=== PATIENT | female | born 1975 | race Caucasian/White ===

== ENCOUNTER 2016-11-19 11:17 | Emergency (ER) | payer BC ==
--- NOTE | 2016-11-19 12:52 | ED CLINICAL REPORT ---
Clinical Report - Physicians/Mid Levels [facility] [address] [place] [address] 11/19/2016 11:26 [id number] Time Seen: 11:45. Arrived- By private vehicle. Historian- patient. HISTORY OF PRESENT ILLNESS Chief Complaint: LOWER EXTREMITY PAIN. This started about 2 months ago and is still present. Severity is described as being moderate. The quality is noted to be sharp and "pain". Flexion and not relieved by anything- worsened by flexion and not relieved by anything. Symptoms located in the area of the left thigh. The patient has not had redness. No swelling, bladder dysfunction, bowel dysfunction, sensory loss or motor loss. She has had difficulty walking (today). Patient notes the possibility of an injury. Mechanism of injury- (patient states that she did not have an injury to initiate the knee pain 2 months ago; however, today while walking on the stairs, she felt a sudden, sharp pain in her posterior leg just superior to her posterior knee. The patient states that she did not feel a pop or a snap, but that every time she tries to flex her knee, she feels the same sharp pain. Patient was seen at [facility] not long after her pain initially began 2 months ago, and an x-ray was done, which was negative. Patient has seen her primary care physician and spoken about an MRI, but one has not been ordered, because the pain was not as bad then as it is today. Patient denies any other complaints She has no history of DVT She states that when the pain first began it was sudden onset. No chest pain or shortness of breath.). Similar symptoms previously: Recent medical care: Not recently seen/assessed. REVIEW OF SYSTEMS No cough, chest pain, difficulty breathing, fever or skin rash. No enlarged lymph nodes, neck pain, back pain, headache or blurred vision. No sore throat, abdominal pain, vomiting, diarrhea or black stools. No difficulty with urination or bloody stools. All systems otherwise negative, except as recorded above. PAST HISTORY Problems: Tendonosis of left hip. Muscle Spasm. Hypertension. Additional Surgeries: Lap band. Medications: [place] Oral (Tablet 10-325 mg), daily. Flexeril 10 mg, daily. AmLODIPine Besylate Oral 5 mg, daily. Allergies: BP MED . (x2) Oxycodone. Penicillins. SOCIAL HISTORY Smoker- current status unknown. No alcohol use or drug use. ADDITIONAL NOTES The nursing notes have been reviewed. PHYSICAL EXAM Vital Signs: 11/19/2016 11:21 BP: 177/86. HR: 114. RR: 18. O2 saturation: 98%. Temp: 97.6 F. Pain level now: 02/07. Have been reviewed. Appearance: Alert. Oriented X3. (Patient is anxious and tearful.). Eyes: Pupils equal, round and reactive to light. Eyes normal inspection. ENT: Nose normal. Neck: Normal inspection. CVS: Pulses normal. Strong peripheral pulses. Respiratory: No respiratory distress. Back: ROM normal. Skin: Skin intact. Skin warm and dry. Normal skin color. Normal skin turgor. Extremities: Left thigh: moderate tenderness located in the posterior aspect of lower thigh. Neurovascular intact distally. No erythema, swelling, laceration, abrasion or ecchymosis. No puncture wound, foreign body or deformity. No signs of infection involving the lower extremities. Extremities otherwise negative. Neuro: Oriented X 3. No motor deficit. No sensory deficit. LABS, X-RAYS, AND EKG Pulse Oximetry: 11/19/2016 11:21 O2 saturation: 98%. (FIO2 - room air). Interpretation: normal. PROGRESS AND PROCEDURES Course of Care: I discussed with the patient that her symptoms were not consistent with a DVT, considering the sudden onset of pain. She has not had an injury that would be expected to result in any bony trauma, and her symptoms are all in the soft tissue of the hamstring area. We have discussed the MRI is more helpful for soft tissue type injuries, if any imaging needs to be done all, and patient states she will think about it. Patient has accepted crutches at this point in time but declined any analgesia in the emergency department. Patient counseled in person regarding the patient's stable condition, diagnosis and need for follow-up. Concerns were addressed. Old medical records reviewed. Disposition: Discharged. Condition: stable. CLINICAL IMPRESSION Muscle strain of the left hamstrings. INSTRUCTIONS Elevate affected areas above chest level as needed and until better. (Please follow-up with your primary doctor to discuss getting an MRI.). Warnings: Further evaluation is necessary. GENERAL WARNINGS: Return or contact your physician immediately if your condition worsens or changes unexpectedly, if not improving as expected, or if other problems arise. Your Current Medications: CONTINUE TAKING THE FOLLOWING MEDICATIONS: AmLODIPine Besylate Oral : 5 mg daily. Flexeril* : 10 mg daily. [place] Oral : Tablet 10-325 mg, daily. Follow-up: Follow up with your doctor. Call for the next available appointment. Reason for referral: Ongoing L leg/knee pain, discuss possible need for MRI. Understanding of the discharge instructions verbalized by patient. (Electronically signed by Jahaira Bai MD 11/26/2016 9:54)
--- NOTE | 2016-11-19 12:52 | ED NURSING NOTES ---
Clinical Report - Nurses [facility] [address] [place] [address] 11/19/2016 11:26 [id number] TRI[facility] Triage time 11:21. Acuity: LEVEL 3. Chief Complaint: LEFT LOWER EXTREMITY PAIN. Alert. No acute distress. RYAN COMA SCORE: [place] Coma Scale: 15- eyes open spontaneously (4); best verbal response- oriented x 4 (5); best motor response- obeys commands (6). --11:30 Milly Prescott R.N. 11:21 11/19/16. BP: 177/86. HR: 114. RR: 18. O2 saturation: 98% on room air. Temp: 97.6 F (oral). Pain level now: 02/07. --11:30 Milly Prescott R.N. Weight: 129.7 kg stated. Height/Length: 65 inches Per Patient. BMI: 47.6. --11:26 Milly Prescott R.N. Medications AmLODIPine Besylate Oral 5 mg, daily. --11:28 Milly Prescott R.N. Flexeril 10 mg, daily. --11:29 Milly Prescott R.N. [place] Oral (Tablet 10-325 mg), daily. --11:29 Milly Prescott R.N. Medication/allergy information source: the patient. --11:30 Milly Prescott R.N. Allergies BP MED . (x2) --11:30 Milly Prescott R.N. Oxycodone. Penicillins. --11:30 Milly Prescott R.N. History Arrived by private vehicle. Historian: patient. Unaccompanied. Primary physician (Eleazar). No injury occurred. This occurred (about 2 months). ( worse today and behind the knee). PAST MEDICAL HX: Last normal menstrual period now. SOCIAL HX: Heavy tobacco smoker- 1 pack per day. No alcohol use or drug use. FALL RISK ASSESSMENT: Fall risk assessment completed. No fall risk identified. FUNCTIONAL ASSESSMENT: Functional assessment: no impairments noted. LEARNING NEEDS ASSESSMENT: The learning needs assessment revealed no barriers. --11:30 Milly Prescott R.N. PROBLEMS: Muscle Spasm. Hypertension. --11:25 Milly Prescott R.N. Tendonosis of left hip. --11:26 Milly Prescott R.N. ADDITIONAL SURGERIES: Lap band. --11:25 Milly Prescott R.N. Assessment GENERAL / NEURO / PSYCH: Alert. Appears in no acute distress. RESPIRATORY: Respirations not labored. SKIN: Skin is warm and dry. --11:30 Milly Prescott R.N. Interventions ID and allergy band on patient. To treatment room. --11:30 Milly Prescott R.N. PHYSICAL ASSESSMENT 11:42 11/19/16. Ambulatory to room. Patient gowned. GENERAL / NEURO / PSYCH: Oriented X 4. Alert. Appears in pain. SKIN: Skin is warm and dry. ( pain with wt bearing). --11:42 Milly Prescott R.N. NURSING PROGRESS NOTES 11:42 11/19/16. Patient gowned. Call light placed in reach. Side rails up x 1. Bed placed in lowest position. Brakes of bed on. --11:42 Milly Prescott R.N. Patient fit with new crutches. Crutch training performed by [employer]; the patient demonstrated proper use. --13:15 Klaudia Alarcon. DISPOSITION / DISCHARGE No learning barriers present. Discharge instructions provided and reviewed with the patient. Patient verbalized understanding. Written instructions provided in Bengali. The patient was discharged by the physician. She was discharged home and accompanied by spouse. She left the Emergency Department on crutches and via private vehicle. Spouse driving. ( pt dc home, ambulatory with crutches, pt returned demonstrated use of crutches, given f/u per MD). --13:20 Jose E Augustine R.N. 13:16 11/19/16. BP: 154/64. HR: 97. RR: 17. O2 saturation: 98%. Temp: deferred. Pain level now: 02/07. --13:20 Jose E Augustine R.N. Locked/Released at 11/24/2016 9:59 by Jose E Augustine R.N.
--- NOTE | 2016-11-19 12:52 | ED NURSING NOTES ---
Clinical Report - Nurses [facility] [address] [place] [address] 11/19/2016 11:26 [id number] TRI[facility] Triage time 11:21. Acuity: LEVEL 3. Chief Complaint: LEFT LOWER EXTREMITY PAIN. Alert. No acute distress. RYAN COMA SCORE: [place] Coma Scale: 15- eyes open spontaneously (4); best verbal response- oriented x 4 (5); best motor response- obeys commands (6). --11:30 Milly Prescott R.N. 11:21 11/19/16. BP: 177/86. HR: 114. RR: 18. O2 saturation: 98% on room air. Temp: 97.6 F (oral). Pain level now: 02/07. --11:30 Milly Prescott R.N. Weight: 129.7 kg stated. Height/Length: 65 inches Per Patient. BMI: 47.6. --11:26 Milly Prescott R.N. Medications AmLODIPine Besylate Oral 5 mg, daily. --11:28 Milly Prescott R.N. Flexeril 10 mg, daily. --11:29 Milly Prescott R.N. [place] Oral (Tablet 10-325 mg), daily. --11:29 Milly Prescott R.N. Medication/allergy information source: the patient. --11:30 Milly Prescott R.N. Allergies BP MED . (x2) --11:30 Milly Prescott R.N. Oxycodone. Penicillins. --11:30 Milly Prescott R.N. History Arrived by private vehicle. Historian: patient. Unaccompanied. Primary physician (Eleazar). No injury occurred. This occurred (about 2 months). ( worse today and behind the knee). PAST MEDICAL HX: Last normal menstrual period now. SOCIAL HX: Heavy tobacco smoker- 1 pack per day. No alcohol use or drug use. FALL RISK ASSESSMENT: Fall risk assessment completed. No fall risk identified. FUNCTIONAL ASSESSMENT: Functional assessment: no impairments noted. LEARNING NEEDS ASSESSMENT: The learning needs assessment revealed no barriers. --11:30 Milly Prescott R.N. PROBLEMS: Muscle Spasm. Hypertension. --11:25 Milly Prescott R.N. Tendonosis of left hip. --11:26 Milly Prescott R.N. ADDITIONAL SURGERIES: Lap band. --11:25 Milly Prescott R.N. Assessment GENERAL / NEURO / PSYCH: Alert. Appears in no acute distress. RESPIRATORY: Respirations not labored. SKIN: Skin is warm and dry. --11:30 Milly Prescott R.N. Interventions ID and allergy band on patient. To treatment room. --11:30 Milly Prescott R.N. PHYSICAL ASSESSMENT 11:42 11/19/16. Ambulatory to room. Patient gowned. GENERAL / NEURO / PSYCH: Oriented X 4. Alert. Appears in pain. SKIN: Skin is warm and dry. ( pain with wt bearing). --11:42 Milly Prescott R.N. NURSING PROGRESS NOTES 11:42 11/19/16. Patient gowned. Call light placed in reach. Side rails up x 1. Bed placed in lowest position. Brakes of bed on. --11:42 Milly Prescott R.N. Patient fit with new crutches. Crutch training performed by [employer]; the patient demonstrated proper use. --13:15 Klaudia Alarcon. DISPOSITION / DISCHARGE No learning barriers present. Discharge instructions provided and reviewed with the patient. Patient verbalized understanding. Written instructions provided in Italian. The patient was discharged by the physician. She was discharged home and accompanied by spouse. She left the Emergency Department on crutches and via private vehicle. Spouse driving. ( pt dc home, ambulatory with crutches, pt returned demonstrated use of crutches, given f/u per MD). --13:20 Jose E Augustine R.N. 13:16 11/19/16. BP: 154/64. HR: 97. RR: 17. O2 saturation: 98%. Temp: deferred. Pain level now: 02/07. --13:20 Jose E Augustine R.N. Locked/Released at 11/24/2016 9:59 by Jose E Augustine R.N.
--- NOTE | 2016-11-26 09:55 | ED MED RECONCILIATION SUMMARY ---
Patient: MELLO PERALTA Medication Reconciliation Report [facility] VisitID: [id number] [address] [place] [address] 41y, F Registration Date/Time: 11/19/2016 Weight: 129.7 kg Height/Length: 65 in. BMI: 47.6 ALLERGIES: BP MED , Oxycodone, Penicillins The patient's Home Medications are listed below: CONTINUE TAKING THE FOLLOWING MEDICATIONS: AmLODIPine Besylate Oral 5 mg, daily Flexeril 10 mg, daily [place] Oral (10-325 mg), daily The source(s) of the original Home Medication information: patient The following Medications were given to the patient in the Emergency Department: None. The following Medications were prescribed to the patient: None.
--- NOTE | 2016-11-26 09:55 | ED MAR SUMMARY ---
..... Medication Administration Record [facility] [address], [place] [id number] Patient: MELLO PERALTA Visit ID: [id number] 41y, F Weight: 129.7 kg Height/Length: 65 in BMI: 47.6 ALLERGIES: Oxycodone, Penicillins, BP MED
--- NOTE | 2016-11-26 09:55 | ED DISCHARGE INSTRUCTIONS ---
Patient: MELLO PERALTA General Instructions [facility] VisitID: [id number] [place] [address] 41y, F Registration Date/Time: 11/19/2016 Muscle strain of the left hamstrings. INSTRUCTIONS Elevate affected areas above chest level as needed and until better. (Please follow-up with your primary doctor to discuss getting an MRI.). Warnings: Further evaluation is necessary. GENERAL WARNINGS: Return or contact your physician immediately if your condition worsens or changes unexpectedly, if not improving as expected, or if other problems arise. Your Current Medications: CONTINUE TAKING THE FOLLOWING MEDICATIONS: AmLODIPine Besylate Oral : 5 mg daily. Flexeril* : 10 mg daily. [place] Oral : Tablet 10-325 mg, daily. Follow-up: Follow up with your doctor. Call for the next available appointment. Reason for referral: Ongoing L leg/knee pain, discuss possible need for MRI. Understanding of the discharge instructions verbalized by patient. ADDITIONAL INFORMATION Muscle Strain,Extremity A MUSCLE STRAIN is a stretching and tearing of muscle fibers. This causes pain, especially with motion of that muscle. There may also be some swelling and bruising. Home Care: 1) Keep the injured area raised to reduce pain and swelling. This is especially important during the first 48 hours. 2) Make an ice pack (ice cubes in a plastic bag, wrapped in a towel) and apply for 20 minutes every 1-2 hours the first day. You should continue with ice packs 3-4 times a day for the second and third days. Unless otherwise instructed, on the fourth day you may begin hot soaks or hot packs (small towel soaked in hot water) 3-4 times a day while you gently exercise the involved area. 3) You may use acetaminophen (Tylenol) or ibuprofen (Motrin, Advil) to control pain, unless another medicine was prescribed. [ NOTE : If you have chronic liver or kidney disease or ever had a stomach ulcer or GI bleeding, talk with your doctor before using these medicines.] 4) For LEG STRAINS: If CRUTCHES have been recommended, do not bear full weight on the injured leg until you can do so without pain. You may return to sports when you are able to hop and run on the injured leg without pain. Follow Up with your doctor or this facility if you are not improving within the next five days. Get Prompt Medical Attention if any of the following occur: -- Fingers or toes become swollen, cold, blue, numb or tingly -- Pain or swelling increases You have been given the following additional information: Muscle Strain, Extremity (Electronically signed by Jahaira Bai MD 11/26/2016 9:54)
--- NOTE | 2016-11-26 09:55 | ED MAR SUMMARY ---
..... Medication Administration Record [facility] [address], [place] [id number] Patient: MELLO PERALTA Visit ID: [id number] 41y, F Weight: 129.7 kg Height/Length: 65 in BMI: 47.6 ALLERGIES: Oxycodone, Penicillins, BP MED
--- NOTE | 2016-11-26 09:55 | ED ORDER SUMMARY ---
..... Patient: MELLO PERALTA OrderSheet [facility] VisitID: [id number] [address] [place] [address] 41y, F Registration Date/Time: 11/19/2016 ORDER SHEET Weight: 129.7 kg (stated) Allergies: BP MED , Oxycodone, Penicillins GENERAL ORDERS: Crutches (13:14 11/19/2016 Deya MEZA) (13:14 Wei Duff) MEDICATION ORDERS: IV FLUIDS: ORDER SHEET NOTES: [Electronically signed by Jose E Augustine R.N. (09:59 11/24/2016)] [Electronically signed by Jahaira Bai MD (09:54 11/26/2016)] [Electronically locked/signed by Jose E Augustine R.N. (09:59 11/24/2016)]
--- NOTE | 2016-11-26 09:55 | ED MED RECONCILIATION SUMMARY ---
Patient: MELLO PERALTA Medication Reconciliation Report [facility] VisitID: [id number] [address] [place] [address] 41y, F Registration Date/Time: 11/19/2016 Weight: 129.7 kg Height/Length: 65 in. BMI: 47.6 ALLERGIES: BP MED , Oxycodone, Penicillins The patient's Home Medications are listed below: CONTINUE TAKING THE FOLLOWING MEDICATIONS: AmLODIPine Besylate Oral 5 mg, daily Flexeril 10 mg, daily [place] Oral (10-325 mg), daily The source(s) of the original Home Medication information: patient The following Medications were given to the patient in the Emergency Department: None. The following Medications were prescribed to the patient: None.
--- NOTE | 2016-11-26 09:55 | ED DISCHARGE INSTRUCTIONS ---
Patient: MELLO PERALTA General Instructions [facility] VisitID: [id number] [place] [address] 41y, F Registration Date/Time: 11/19/2016 Muscle strain of the left hamstrings. INSTRUCTIONS Elevate affected areas above chest level as needed and until better. (Please follow-up with your primary doctor to discuss getting an MRI.). Warnings: Further evaluation is necessary. GENERAL WARNINGS: Return or contact your physician immediately if your condition worsens or changes unexpectedly, if not improving as expected, or if other problems arise. Your Current Medications: CONTINUE TAKING THE FOLLOWING MEDICATIONS: AmLODIPine Besylate Oral : 5 mg daily. Flexeril* : 10 mg daily. [place] Oral : Tablet 10-325 mg, daily. Follow-up: Follow up with your doctor. Call for the next available appointment. Reason for referral: Ongoing L leg/knee pain, discuss possible need for MRI. Understanding of the discharge instructions verbalized by patient. ADDITIONAL INFORMATION Muscle Strain,Extremity A MUSCLE STRAIN is a stretching and tearing of muscle fibers. This causes pain, especially with motion of that muscle. There may also be some swelling and bruising. Home Care: 1) Keep the injured area raised to reduce pain and swelling. This is especially important during the first 48 hours. 2) Make an ice pack (ice cubes in a plastic bag, wrapped in a towel) and apply for 20 minutes every 1-2 hours the first day. You should continue with ice packs 3-4 times a day for the second and third days. Unless otherwise instructed, on the fourth day you may begin hot soaks or hot packs (small towel soaked in hot water) 3-4 times a day while you gently exercise the involved area. 3) You may use acetaminophen (Tylenol) or ibuprofen (Motrin, Advil) to control pain, unless another medicine was prescribed. [ NOTE : If you have chronic liver or kidney disease or ever had a stomach ulcer or GI bleeding, talk with your doctor before using these medicines.] 4) For LEG STRAINS: If CRUTCHES have been recommended, do not bear full weight on the injured leg until you can do so without pain. You may return to sports when you are able to hop and run on the injured leg without pain. Follow Up with your doctor or this facility if you are not improving within the next five days. Get Prompt Medical Attention if any of the following occur: -- Fingers or toes become swollen, cold, blue, numb or tingly -- Pain or swelling increases You have been given the following additional information: Muscle Strain, Extremity (Electronically signed by Jahaira Bai MD 11/26/2016 9:54)
--- NOTE | 2016-11-26 09:55 | ED ORDER SUMMARY ---
..... Patient: MELLO PERALTA OrderSheet [facility] VisitID: [id number] [address] [place] [address] 41y, F Registration Date/Time: 11/19/2016 ORDER SHEET Weight: 129.7 kg (stated) Allergies: BP MED , Oxycodone, Penicillins GENERAL ORDERS: Crutches (13:14 11/19/2016 Deya MEZA) (13:14 Wei Duff) MEDICATION ORDERS: IV FLUIDS: ORDER SHEET NOTES: [Electronically signed by Jose E Augustine R.N. (09:59 11/24/2016)] [Electronically signed by Jahaira Bai MD (09:54 11/26/2016)] [Electronically locked/signed by Jose E Augustine R.N. (09:59 11/24/2016)]
== END 2016-11-19 13:14 | disposition home or self-care (01) ==
LOC: ED SRH 11:17
DX: S76.312A Strain of muscle, fascia and tendon of the posterior muscle group at thigh level, left thigh, initial encounter (principal); I10 Essential (primary) hypertension; Z79.899 Other long term (current) drug therapy; Z88.0 Allergy status to penicillin; Z88.5 Allergy status to narcotic agent; Z88.8 Allergy status to other drugs, medicaments and biological substances